=== PATIENT | female | born 1955 | race Two or more races ===

== ENCOUNTER → 2018-09-22 | Outpatient (CLI) | payer OTHER | LOC: CIMAGING 11:14 | PROVIDERS: ATTEND Family Medicine | DX: S52.515A Nondisplaced fracture of left radial styloid process, initial encounter for closed fracture (principal); S62.112A Displaced fracture of triquetrum [cuneiform] bone, left wrist, initial encounter for closed fracture; M25.762 Osteophyte, left knee; M25.462 Effusion, left knee; M79.89 Other specified soft tissue disorders | CPT/HCPCS: 73090-PO; 73110-PO; 73120-PO; 73562-PO ==